=== PATIENT | male | born 1930 ===

== ENCOUNTER → 2021-05-04 | Outpatient (CLI) | payer OTHER ==
[~2021-05-04] VITALS: Ht 177.8 cm; Wt 70.3 kg
[~2021-05-04] MED LIST: ASA81BEC PO; ATORVASTATIN CA80 MG PO; BELBUCA150 MCG PO; FLOMAX0.4 MG PO; FOSAMAX 70 MG T70 MG PO; LEVO-T25 MCG PO; NORVASC10 MG PO; OMEPRAZOLE 20 M20 M1 PO; OXYCODONE HCL10 MG PO; PERCOCET 10-321 EAC1 PO; PLAVIX 75 MG TA75 MG PO; PROSCAR 5MG TABL5 M1 PO; VITAMIN D250 MCG PO; ZETIA10 MG PO; ZOLPIDEM TARTRA10 MG PO
[2021-05-04 13:09] VITALS: BP 166/57
--- NOTE | 2021-05-04 13:53 | NUR ---
[facility] Assessment: 1. History of Osteoarthritis: History of Rheumatoid Arthritis: Left Lower Extremity Left Upper Extremity Right Lower Extremity Right Lower Extremity 2. Height: 5 ft. 10 in. 177.8 cm. Weight: 155.0 lb. oz. 70.308 kg. Patient's BMI: 22.2 3. Vital Signs: BP: 166/57 Pulse: 76 Resp: 14 Temp: 02 Sat: 98 ECG Mon: 4. Pain Intensity: 8 5. Fall Risk: Dizziness: N Needs help standing or walking: Y Fallen in the last 3 months: N Fall risk comments: 6. Patient on Blood Thinner: PLAVIX 75 MG 7. History of Hypertension: Y 8. Opioid Therapy greater than 6 weeks: Opiate Contract Signed: 9. Risk Assessment Tool Provided: 0-3 10. Functional Assessment Tool: 11. Recreational Drug Use: Never Drug Type: Tobacco Use: Never Smoker Tobacco Type: Amount or Packs/day: How Many Years: Alcohol Use: Yes Frequency: Daily Quant: 2
== END ==
LOC: PAIN 05-02 00:57
PROVIDERS: ATTEND Anesthesiology Pain Medicine
DX: G89.29 Other chronic pain (principal); M47.816 Spondylosis without myelopathy or radiculopathy, lumbar region; M47.812 Spondylosis without myelopathy or radiculopathy, cervical region; M16.11 Unilateral primary osteoarthritis, right hip; Z95.2 Presence of prosthetic heart valve; Z88.8 Allergy status to other drugs, medicaments and biological substances; Z79.899 Other long term (current) drug therapy